=== PATIENT | male | born 2000 | race Hispanic/Latino ===

== ENCOUNTER 2024-02-06 12:43 | Emergency (ER) | payer OTHER, SELFPAY ==
[2024-02-06 12:49] VITALS: BP 133/85
--- NOTE | 2024-02-06 13:12 | ED.GENMED ---
History of Present Illness
General
Chief Complaint: Abdominal Symptoms
Source: patient
Time Seen by Provider: 02/06/24 12:58
History of Present Illness
History of Present Illness:
Vietnamese language line [id number] used for Interpretation
23-year-old male with no significant past medical history presenting to the emergency department for evaluation of abdominal discomfort that began about 4 months ago, mostly unchanged today however patient stated he started feeling some worse pain
in his lower back flank area which is what prompted him to come to the ER for further evaluation. Patient reports his only other symptoms is he feels that he has been urinating more often but denies any pain with urination as well as when eating he
will sometimes feel bloated. He denies any fevers, chills, rigors, nausea or vomiting. Patient states that he took some type of tablet from a store to try and help with his symptoms but did not feel any relief. Surgical history was noted for
previous appendectomy. Social history was otherwise noncontributory.
Past History
Past History
ED Past Medical History: None
ED Past Surgical History: Appendectomy
Social History
Tobacco: Non-smoker
Alcohol: None
Drug: None
Personal: Single
Living: with family
Review of Systems
Review of Systems
All Other Systems: ROS reviewed and negative except as documented in HPI and ROS
Phy Exam
Physical Exam
Physical Exam:
GENERAL: Alert , in no apparent distress
EYE: clear conjunctiva b/l
HEAD: NCAT
ENT: o/p clr, mmm.
CARDIAC: Regular rate and rhythm .
LUNGS: Clear breath sounds bilaterally, no acute respiratory distress, no wheezes/rales/rhonchi
ABDOMEN: Soft, without focal tenderness, no r/g, no cvat
NEUROLOGICAL: Alert and oriented
SKIN: Warm and dry, skin intact.
MUSCULOSKELETAL: No edema, well perfused.
PSYCH: Normal and appropriate interaction.
Scores
Heart Failure Risk
Heart Failure Risk Score: Not Applicable
Heart Score for Chest Pain Patients
STEMI patient?: Not applicable
Withdrawal Assessment of Alcohol
Withdrawal Assessment Completed?: Not applicable
Course
Orders/Labs/Results
Orders:
Orders
02/06/24 13:15
Complete Blood Count/With Diff Urgent
Comprehensive Metabolic Panel Urgent
Lipase Urgent
02/06/24 13:19
Urinalysis Reflex To Culture Urgent
Date Specimen was Collected: 02/06/24
Time Specimen was Collected: 13:18
02/06/24 13:20
Chlamydia/GC by PCR Urgent
DARELL Source: Urine
Specimen Description:
Source:: URINE
Date Specimen was Collected: 02/06/24
Time Specimen was Collected: 13:18
Abnormal Lab Results
02/06/24
13:15
RBC 4.53 L 10^6/uL
(4.70-6.10)
Hct 37.8 L %
(39.0-52.0)
Absolute Lymphs (auto) 1.1 L 10^3/uL
(1.2-3.4)
Neutrophils % 75.7 H %
(42.2-75.2)
Lymphocytes % 15.7 L %
(20.5-51.1)
Glucose 136 H mg/dl
(70-99)
02/06/24 13:15
02/06/24 13:15
Vital Signs
Initial and Last Documented VS:
Initial Vital Signs
Temp Pulse Resp BP Pulse Ox
98.2 F 84 18 133/85 98
02/06/24 12:49 02/06/24 12:49 02/06/24 12:49 02/06/24 12:49 02/06/24 12:49
Last Documented Vital Signs
Temp Pulse Resp BP Pulse Ox
98.2 F 84 18 133/85 98
02/06/24 12:49 02/06/24 12:49 02/06/24 12:49 02/06/24 12:49 02/06/24 12:49
MDM/Problems Addressed
Differential Diagnosis Includes:
GERD, gastritis, UTI, STI, renal/ureteral colic, I do not have concern for an acute surgical abdomen
MDM/Problems Addressed:
23-year-old male presenting to the emergency department for abdominal discomfort that has been ongoing for approximately 4 months, described to be very mild, today pain was also felt within the diffuse lower back which is what the ER for further
evaluation. Physical exam is reassuring, patient in no acute distress and abdomen is without any focality. Will check labs and urine. I do not feel there is a surgical component nor an acute infectious component. Possible gastritis/GERD given
bloating/to following eating. Anticipate discharge home.
*Pulse Oximetry
Patient hypoxic: no
*Critical Care Note
Total Time (30-74mins, 75-104mins- exclusive of procedures): Not Applicable
Comment
Comment:
[id number] albanian line used for interpretation.
I reviewed patients labs and urine results. No acute abnormalities. Rx for pepcid given to patient. Information for the clinic provided. Stable for d/c home and aware of return precautions
ED Attending Note
-
Portions of this chart may have been created with voice recognition software.� Occasional wrong word or��sound alike� substitutions may have occurred due to the inherent limitations of voice recognition software.
Discharge Plan
Departure
Patient Disposition: Home (Routine Discharge)
Date of Disposition: 02/06/24
Time of Disposition: 14:04
Patient with high blood pressure during this ER visit?: No
Discharge Problem:
Abdominal pain
Instructions: Abdominal Pain
Prescriptions:
New
famotidine [Pepcid] 20 mg tablet
20 mg PO BID Qty: 30 0RF
Referrals:
[facility] [Outside]
NONE,* [Family Provider] -
Stand Alone Forms: Return to Work
Interventions
Interventions:
*Risk Screen - Suicide Last Done: 02/06/24 12:49
*General Assessment Last Done: 02/06/24 12:49
*Neglect/Abuse Screening Last Done: 02/06/24 12:49
ED- Fall Risk Assessment Last Done: 02/06/24 12:54
*ED COVID-19 Vaccine History Last Done: 02/06/24 12:49
SS-Uwpdsj-Rmxxmyzaey Assessment Last Done: 02/06/24 13:21
Discharge Date and Time
Print Language: GUINEAN
[2024-02-06 13:38] LABS: % Basophils 0.3 % (0-2); % Eosinophils 1.3 % (0-6); % Immature Granulocytes 0.1 % (0-0.5); % Lymphocytes 15.7 % (20.5-51.1); % Monocytes 6.9 % (1.7-9.3); % Neutrophils 75.7 % (42.2-75.2); Absolute Eosinophils 0.1 10^3/uL (0-0.7); Absolute Lymphocytes 1.1 10^3/uL (1.2-3.4); Absolute Monocytes 0.5 10^3/uL (0.1-0.6); Absolute Neutrophils 5.3 10^3/uL (1.4-6.5); Hematocrit 37.8 % (39.0-52.0); Hemoglobin 13.8 g/dL (13.0-18.0); Mean Corp Hgb Conc. 36.5 g/dL (33.0-37.0); Mean Corpuscular Hgb 30.5 pg (27.0-31.0); Mean Corpuscular Volume 83.4 fL (80.0-94.0); Mean Platelet Volume 9.6 fL (7.4-10.4); Nucleated Red Blood Cells % 0 % (-); Platelet Count 237 10^3/uL (130-400); Red Blood Cell Count 4.53 10^6/uL (4.70-6.10); Red Cell Dist. Width 12.2 % (11.5-14.5)
[2024-02-06 13:44] LABS: Urine Albumin Negative (Neg - Trace); Urine Bilirubin Negative (Negative); Urine Character Clear (Clear); Urine Color Yellow; Urine Glucose Negative (Negative); Urine Ketone Negative (Negative); Urine Leukocyte Negative (Negative); Urine Nitrite Negative (Negative); Urine Occult Blood Negative (Negative); Urine Urobilinogen Negative (Neg - 1+)
[2024-02-06 13:51] LABS: ALT (SGPT) 29 U/L (0-50); AST (SGOT) 29 U/L (17-59); Albumin 4.8 g/dl (3.5-5.0); Alkaline Phosphatase 59 U/L (38-126); Blood Urea Nitrogen 12 mg/dl (9-20); Carbon Dioxide 27 mmol/L (22-30); Chloride 104 mmol/L (98-107); Glucose 136 mg/dl (70-99); Lipase 136 U/L (23-300); Sodium 138 mmol/L (135-145); Total Bilirubin 0.5 mg/dl (0.2-1.3); Total Protein 7.1 g/dl (6.3-8.2); eGFR > 60.00
[2024-02-06 14:20] VITALS: BP 129/78
== END 2024-02-06 14:30 | disposition home or self-care (01) ==
LOC: EMR 12:43
PROVIDERS: Physician Assistant Medical; EMERGENCY PHYSICIAN Emergency Medicine
DX: R10.9 Unspecified abdominal pain (principal); M54.50 Low back pain, unspecified; R35.0 Frequency of micturition; R14.0 Abdominal distension (gaseous)
CPT/HCPCS: 99283; 80053; 81003; 83690; 85025; 87491; 87591